=== PATIENT | male | born 1975 | race Caucasian/White ===

== ENCOUNTER 2022-04-24 08:40 | Outpatient (CLI) | payer BC, SELFPAY ==
--- NOTE | 2022-04-24 10:16 | W.ANESCHARGE ---
Anesthesia Charges Start Date/Time Anesthesia Start Date: 04/24/22 Anesthesia Start Time: 09:42 Stop Date/Time Anesthesia Stop Date: 04/24/22 Anesthesia Stop Time: 10:13 Summary Emergency: No
--- NOTE | 2022-04-24 10:51 | W.ANESCHARGE ---
Anesthesia Charges Start Date/Time Anesthesia Start Date: 04/24/22 Anesthesia Start Time: 09:42 Stop Date/Time Anesthesia Stop Date: 04/24/22 Anesthesia Stop Time: 10:13 Summary Emergency: No
== END 2022-04-24 08:41 | disposition home or self-care (01) ==
PROVIDERS: PCP Physician Assistant Medical; Visit Provider Surgery
DX: Z12.11 Encounter for screening for malignant neoplasm of colon (principal); Z80.0 Family history of malignant neoplasm of digestive organs
CPT/HCPCS: 45378; 811; 812; J2704

== ENCOUNTER 2022-09-18 13:29 | Outpatient (RCR) | payer MEDICAID, SELFPAY ==
--- NOTE | 2022-09-18 15:56 | PT.OPE ---
PT [place] [place] [facility] Eval PT [facility] Outpatient Eval Start: 09/18/22 10:11 Freq: Status: Active Protocol: Document 09/18/22 15:54 CJT (Rec: 09/18/22 15:55 CJT [id number]) E-signed By Russel Chatman PT Physical Therapy Outpatient Evaluation Insurance Information Recert Due Date 11/13/22 Insurance Name [employer] Medical Diagnosis M17.11 - unilateral primary OA of R knee Treating Diagnosis M25.561 - R knee pain M25.661 - R knee stiffness Referring MD Ramirez, Alberto OCONNOR Subjective Subjective Pt presents with R knee pain ongoing for several years. Pt has history of ACL tear and repair x 2 in 1994 and 1999 he thinks. Current knee pain has been ongoing for about 5 years now and has been progressively getting worse. Pts knee pain is made worse with walking long distances and stairs (up causes more pain, down causes increased instability). Walking up hills also cause stabbing pain that causes his knee to buckle. Pt thinks he is able to walk about 100 yards before he needs to stop to rest due to his pain. Pain occasionally keeps him from sleeping at night. Is taking IBP for pain relief. 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 Pain Comments High: 6/10 Average: 3/10 Low: 0/10 Date of Last Physician Visit 09/04/22 Current Work Status Unemployed Precautions Therapy Limitations/Systems Review Not Limited Objective Other/Pertinent Objective R Hip ROM Flexion - 120 Abduction - 30 IR/ER - 30/25 Extension - 5 L Hip ROM Flexion - 120 Abduction - 35 IR/ER - 30/25 Extension - 5 R knee ROM - 0-4-127 L knee ROM - 5-0-130 R ankle PF/DF(kf)/DF(ke) - 45/ 0/0 L ankle PF/DF(kf)/DF(ke) - 45/ 0/0 R Hip Strength Flexion - 5/5 MMT Abduction - 5/5 MMT Adduction - 5/5 MMT IR - 5/5 MMT ER - 3/5 MMT *limited by pain in medial knee Extension - 4+/5 MMT L Hip Strength Flexion - 5/5 MMT Abduction - 5/5 MMT Adduction - 5/5 MMT IR - 5/5 MMT ER - 5/5 MMT Extension - 5/5 MMT R knee Extension - 5/5 MMT R Knee Flexion - 5/5 MMT L knee Extension - 5/5 MMT L knee Flexion - 5/5 MMT R ankle DF - 5/5 MMT L ankle DF - 5/5 MMT Gait: antalgic on R Assessment Assessment/Impression Pt is a 47 year old male who presents with complaints of R knee pain ongoing and increasing over the past 5 years. Pts pain is achy, sharp , intermittent, and relieves with rest. Imaging shows significant joint space narrowing in medial compartment of R knee. Testing reveals knee AROM of 0-4-127 today. Pt notes that he has not had full knee extension on R for many years now. Pt does have history of ACL repair x 2 in 1996 and 2000, he believes. Testing reveals well -preserved strength and ROM in B LEs although pt does have sharp pain in knee with step- ups today and sit-stand transfers. The nature of the pts condition was explained and all questions were answered to the pts satisfaction. Skilled PT services are medically necessary to address deficits and return patient to highest level of function. Recommend physical therapy sessions 1/ week for 8 weeks. Pt agrees with this plan. Printout of HEP was given for I completion and pt gives verbal understanding of each exercise . Primary Functional Limitations Walking, stairs Plan of Care Rehabilitation Potential Fair Physical Therapy Goals STG - To be completed in 2-3 weeks: 1. Pt will report consistent use of ice as well as elevation of R LE while resting to reduce inflammation and swelling. 3. Pt to report reduction in knee pain with ambulation by factor of 2 so that he may continue to go on walks with his for exercise. LTG - To be completed in 8-12 weeks: 1. Pt to be I with HEP so that they may I manage progression of symptoms. 2. Pt will perform 10+ squats with good control over medial/ lateral deviation of knees to show improved functional strength to assist with transfers. 3. Pt will demo ability to ascend/descend flight of stairs with no change in pain so that he may negotiate steps at home without flaring knee symptoms. Treatment Plan/Direct Interventions Electrical Stimulation,Ice/ Cold/Vasopneumatic,Joint Mobilization,Manual Therapy, Neuromuscular Re-ed,Self-Care/ Home Management,Therapeutic Activities,Therapeutic Exercises,Ultrasound Frequency/Duration 1/week for 8 weeks Patient Will Be Discharged From Therapy Completion of LTG(s),Skills Plateau,Independent w/HEP, Independently Progressing Evaluation Billing Untimed Code Treatment Minutes 45 PT Eval No Charge No Complexity Low Certification Information Initial Certification Date 09/18/22 Ending Certification Date 11/13/22 Provider Signature Shows Agreement With POC & Medical Necessity Physician Signature & Date Requested Please Sign/Date Here Physician Comment/Change : Physician NPI Number #
== END 2022-11-15 14:28 | disposition home or self-care (01) ==
PROVIDERS: PCP Physician Assistant Medical; Visit Provider Orthopaedic Surgery
DX: M25.561 Pain in right knee (principal); M25.661 Stiffness of right knee, not elsewhere classified; M17.11 Unilateral primary osteoarthritis, right knee; Z51.89 Encounter for other specified aftercare
CPT/HCPCS: 97110; 97161

== ENCOUNTER 2024-02-13 15:58 | Outpatient (CLI) | payer BC, SELFPAY | END 2024-02-13 15:59 | disposition home or self-care (01) | PROVIDERS: PCP Physician Assistant Medical; Visit Provider Physician Assistant Medical | DX: M25.50 Pain in unspecified joint (principal); R41.89 Other symptoms and signs involving cognitive functions and awareness; R53.83 Other fatigue; R10.9 Unspecified abdominal pain | CPT/HCPCS: 80053; 80201; 82607; 82746; 83690; 84425; 84443; 86140; 86618; 87468; 87469; 87484; 87798 ==

== ENCOUNTER 2024-04-07 15:04 | Outpatient (CLI) | payer BC, SELFPAY | END 2024-04-07 15:05 | disposition home or self-care (01) | LOC: LKVREF 15:06 | PROVIDERS: PCP Physician Assistant Medical; Visit Provider Physician Assistant Medical | DX: F90.9 Attention-deficit hyperactivity disorder, unspecified type (principal); Z02.83 Encounter for blood-alcohol and blood-drug test | CPT/HCPCS: 80306 ==

== ENCOUNTER 2024-09-08 08:41 | Outpatient (CLI) | payer BC, SELFPAY | END 2024-09-08 08:42 | disposition home or self-care (01) | PROVIDERS: PCP Physician Assistant Medical; Visit Provider Physician Assistant Medical | DX: Z12.5 Encounter for screening for malignant neoplasm of prostate (principal) | CPT/HCPCS: 87081; G0103 ==

== ENCOUNTER 2024-09-08 09:46 | Outpatient (RCR) | payer BC, SELFPAY | END 2024-11-05 14:54 | disposition home or self-care (01) | PROVIDERS: PCP Physician Assistant Medical; Visit Provider Orthopaedic Surgery | DX: M17.11 Unilateral primary osteoarthritis, right knee (principal); Z96.651 Presence of right artificial knee joint; Z51.89 Encounter for other specified aftercare | CPT/HCPCS: 97161 ==

== ENCOUNTER 2024-09-09 15:55 | Outpatient (CLI) | payer BC, SELFPAY | END 2024-09-09 15:56 | disposition home or self-care (01) | LOC: NFLDREF 15:55 | PROVIDERS: PCP Physician Assistant Medical; Visit Provider Physician Assistant Medical | DX: Z86.14 Personal history of Methicillin resistant Staphylococcus aureus infection (principal) | CPT/HCPCS: 87081 ==

== ENCOUNTER 2024-09-11 06:06 | Day surgery (SDC) | payer BC, SELFPAY ==
[2024-09-11] VITALS (18 sets, daily range): BP systolic 97–129; BP diastolic 58–94; PULSE 64–97; RESP 16–22; TEMP 36–36.9; O2SAT 93–99; BMI 40.8
[2024-09-11] MEDS: ACETAMINOPHEN 500 MG TABLET 1000 MG PO ×2 (06:51→13:08)
[2024-09-11] MEDS: LACTATED RINGERS 1000 ML 1,000 ML 100 ML IV (06:52)
[2024-09-11] MEDS: CELECOXIB 200 MG CAPSULE PO (06:52)
[2024-09-11] MEDS: SODIUM CHLORIDE 0.9 % (FLUSH) 10 ML SYRINGE IVF (06:52)
[2024-09-11] MEDS: OXYCODONE (CR) 10 MG TAB.ER.12H PO (06:52)
[2024-09-11] MEDS: fentaNYL 100 MCG/2 ML inj IVP (07:25)
[2024-09-11] MEDS: MIDAZOLAM HCL 1 MG/ML inj IVP (07:25)
--- NOTE | 2024-09-11 07:31 | SUR.PREOP ---
TIME?OUT:?0725 PT/RN/MDA?VERIFICATION?OF?SURGICAL?SITE Right Knee,?PROCEDURE Nerve Block,?AND?CONSENT OBTAINED?PRIOR?TO?INVASIVE?PROCEDURE.
[2024-09-11] MEDS: TRANEXAMIC ACID 100 MG/ML INJ 1000 MG IV (07:50)
[2024-09-11] MEDS: CEFAZOLIN 2 GM INJ IVP (07:55)
--- NOTE | 2024-09-11 10:50 | CRLHL7_ITS ---
For Patients: As a result of the Cures Act, medical imaging exams and procedure reports are released immediately into your electronic medical record. You may view this report before your referring provider. If you have questions, please contact your health care provider. Indication: post op TKA Technique: Two views right knee Findings/Impression: Hardware from a right total knee arthroplasty is in satisfactory position. Bone alignment is normal. No sign of acute fracture. Postop changes are within normal limits. Dictated by Stewart Castellano MD @ 09/11/2024 1:12:29 PM (Electronically Signed)
--- NOTE | 2024-09-11 11:40 | W.ANESCHARGE ---
Anesthesia Charges Start Date/Time Anesthesia Start Date: 09/11/24 Anesthesia Start Time: 07:32 Stop Date/Time Anesthesia Stop Date: 09/11/24 Anesthesia Stop Time: 11:59
--- NOTE | 2024-09-11 11:41 | P.NB_ITS ---
Nerve Block Nerve Block Time Seen by Provider: 07:25 Date Seen: 09/11/24 Type of block requested by surgeon for post-operative analgesia: adductor canal Side: right Time out performed: Yes Verification of patient name: Yes Verification of date of : Yes Site marking: site marked Name of person performing procedure: Harvinder Continuous monitoring Was continuous monitoring of O2 sat, B/P, cardiac sonographer, recorded every 15 minutes?: Yes Procedure Checklist: sterile prep, needles and gloves Ultrasound guided. Images saved: Yes Medications given in 5ml increments after negative aspiration: Marcaine %: 0.25 mL: 15 Needle gauge: 20 Precedex (mcg): 25 Patient tolerated procedure well: Yes Block Charges Block Charge (with Pro Fee): Femoral Nerve Use of Ultrasound Machine for Block: Yes- US Guidance/pain block
--- NOTE | 2024-09-11 11:41 | P.NB_ITS ---
Nerve Block Nerve Block Time Seen by Provider: 07:25 Date Seen: 09/11/24 Type of block requested by surgeon for post-operative analgesia: geniculars Side: right Time out performed: Yes Verification of patient name: Yes Verification of date of : Yes Site marking: site marked Name of person performing procedure: Harvinder Continuous monitoring Was continuous monitoring of O2 sat, B/P, documentation coordinator, recorded every 15 minutes?: Yes Procedure Checklist: sterile prep, needles and gloves Ultrasound guided. Images saved: Yes Medications given in 5ml increments after negative aspiration: Marcaine %: 0.25 mL: 9 Needle gauge: 25 Patient tolerated procedure well: Yes Block Charges Block Charge (with Pro Fee): Genicular Nerve Block
--- NOTE | 2024-09-11 12:02 | W.ANESCHARGE ---
Anesthesia Charges Start Date/Time Anesthesia Start Date: 09/11/24 Anesthesia Start Time: 07:32 Stop Date/Time Anesthesia Stop Date: 09/11/24 Anesthesia Stop Time: 11:59
[2024-09-11] MEDS: fentaNYL 100 MCG/2 ML inj 50 MCG IVP ×2 (12:04→12:25)
--- NOTE | 2024-09-11 12:50 | PM.ORPRC ---
Procedure Note Date of procedure: 09/11/24 Procedure: PREOPERATIVE DIAGNOSIS: Right knee osteoarthritis, retained hardware POSTOPERATIVE DIAGNOSIS: Right knee osteoarthritis, retained hardware NAME OF OPERATION: Right total knee arthroplasty, hardware removal deep SURGEON: Alberto Ramirez MD CAREER GUIDANCE TECHNICIAN: Praveen Simon PA-C ANESTHESIA: Spinal ESTIMATED BLOOD LOSS: 300 mL COMPLICATIONS: None SPECIMENS: None DRAINS: None PREOPERATIVE ANTIBIOTICS: Ancef 3 grams, antibiotic impregnated cement IMPLANTS: 1. J&J Attune revision CRS # 9 posterior stabilized femur, 14 mm x 50 mm cemented stem 2. # 9 revision CRS fixed-bearing tibia, 14 x 50 mm cemented stem 3. # 9 posterior stabilized, 5 mm fixed-bearing polyethylene 4. 41 patella INDICATIONS: The patient is a 49-year-old with a longstanding history of severe, unrelenting right knee pain secondary to end-stage (grade IV) right knee osteoarthritis after failed patellar tendon autograft ACL reconstruction x2, with retained hardware. Despite appropriate nonoperative management, including activity modification, anti-inflammatories, [id number] pain medication, bracing, physical therapy, and injections they continue to have pain and disability. Operative intervention was offered. The risks, benefits and expected outcomes were discussed in detail. These included but were not limited to: Infection, bleeding, injury to blood vessel or nerve, venous thromboembolism. All questions were answered to their satisfaction. Use of an assistant chief engineer was necessary throughout the case for patient positioning and safety, soft tissue retraction, and closure. A modifier 22 should be added to this case. The patient's weight of 140 kg, BMI of 41, and previous surgery x2 with a marked amount of scarring made the dissection quite difficult. To reduce the risk of aseptic loosening, stemmed components were used. These factors added time and cost to complete the case. PROCEDURE: Spinal anesthesia was administered. The patient was placed supine on the operating table. The assistant chief engineer made sure the patient was positioned appropriately. The lower extremity was prepped and draped in the usual sterile fashion. The limb was exsanguinated with the Moises bandage. The pneumatic tourniquet was inflated to 300 mmHg. A standard anterior incision was made with the knee in flexion. Subcutaneous dissection was sharply taken through fascial layer #1. Full-thickness medial and lateral flaps were elevated. The assistant chief engineer retracted the soft tissues and protected them throughout the case. A standard subvastus approach was made. The patella was subluxed. The infrapatellar fat pad was debrided. The menisci and cruciate ligaments were sharply d?brided. Marginal osteophytes were d?brided with the rongeur. We exposed the sharath over the anteromedial face of the tibia at the origin of the tibial tunnel. We exposed the sharath with the rongeur, curette and osteotome. We removed the 1st staple with the vice veterans service representative. Part of the staple broke off in the bone. This allowed us to expose the Juan Miguel staple which was removed intact with the extractor. The other staple was removed with a vice veterans service representative and broke as well. We were able to get remaining sheree in the tibia removed x2 with the vice veterans service representative. The titanium interference screw was removed intact. This nearly took an hour of tourniquet time. The drill was used to penetrate the femoral canal. The canal was aspirated and irrigated with pulse lavage. The intramedullary femoral guide was placed for a 5-degree valgus cut, removing 10 mm off the distal femur. The saw was used to make the cut. It did not appear that we removed enough of the distal femur. Therefore, we turned our attention to the proximal tibia. The extramedullary tibial guide was placed for a neutral varus/valgus cut with 5 degrees of posterior slope, removing 2 mm based off the medial tibial surface. The assistant chief engineer protected the collateral ligaments and the neurovascular bundle. The saw was used to make the cut. The dog bone was placed in full extension, showing a tight extension gap. Therefore, we advanced the distal femoral cutting jig 2 more mm proximally and recut the femur. This allowed us to get the knee into full extension with the 5 mm dog bone. Whitesides line and the trans epicondylar axis were marked. The femoral sizing guide was pinned onto the distal femur. Three degrees of external rotation nicely parallels the transepicondylar axis. Pins were placed for posterior referencing. The four-in-one cutting guide was pinned onto the distal femur. The anterior, posterior, and chamfer cuts were made. The assistant chief engineer protected the collateral ligaments. The revision trial was placed. The box cuts were made. The drill was used x2. The stemmed, boxed trial was placed and was an excellent fit. We attempted to place trial components. However the knee was tight in both flexion and extension. Therefore, we advance the tibial cutting guide 2 more mm distally and recut the proximal tibia. Again, trial components were placed and again the knee was tight in both flexion and extension. Therefore, we advanced the tibial cutting jig another 2 mm more distally and recut the proximal tibia. Now the trial components components were placed, and the knee was nicely balanced in both flexion and extension. The trial components were removed. The tray was placed in appropriate rotation, parallel to our tibial cutting pins. It was pinned by the assistant chief engineer and the drill x2 was used. The stemmed tibial trial was placed. The punch was used. The tray was removed. The punch was used again. Attention was then turned to the patella. [place] patellar thickness was 24.5 mm. The RE2ster claw resection guide was used with the 9.5 mm mame. The saw was used to make the cut. Drill holes were made by the assistant chief engineer. The trial was placed and was an excellent fit. At this point, we were at 129 minutes of tourniquet time. Therefore, we released the tourniquet and cauterized obvious bleeders. The tourniquet was kept down for 20 minutes. After that time we exsanguinated the limb and reinflated the tourniquet. Cancellous surfaces were irrigated with pulse lavage and thoroughly dried by the assistant chief engineer. We cemented the tibial component, then the femoral component. We impacted the 5 mm polyethylene onto the tibial tray. The knee was brought into full extension. We then cemented the patellar component. Excessive cement was removed. The cement was allowed to harden. The knee was taken through a range of motion and was found to be nicely balanced in both flexion and extension. The patella tracks centrally. At this point, the tourniquet was released and kept down for the rest of the case. The assistant chief engineer did a three minute dilute Betadine solution soak. The assistant chief engineer irrigated the wound with 3 liters of normal saline via pulse lavage. The assistant chief engineer reapproximated the extensor mechanism with #1 Vicryl in an interrupted [id number] fashion. The assistant chief engineer then ran the extensor mechanism with a #1 PDO Stratafix. The assistant chief engineer closed the subcutaneous tissues with a 3-0 Stratafix and the skin with a running 3-0 Stratafix in a subcuticular fashion. Glue was used to seal the skin. The assistant chief engineer placed a dry dressing. Sponge and needle counts were correct x2. The patient tolerated the procedure well. There were no apparent complications. They were carefully transferred to the hospital bed and taken to the postanesthesia care unit in satisfactory condition. PLAN: The patient will be mobilized with physical therapy. Aspirin will be used for DVT prophylaxis. They will be discharged to home once medically appropriate.
[2024-09-11] MEDS: OXYCODONE 5 MG TABLET PO (13:08)
[2024-09-11] MEDS: hydrOXYzine pamoate 25 MG CAPSULE PO (13:09)
--- NOTE | 2024-09-11 14:54 | SUR.PHASEII ---
Patient returned from PT instruction. Patient and verbalized readiness to be discharged and understanding of discharge instructions.
--- NOTE | 2024-09-12 13:03 | PM.ANPOST ---
Post Anesthesia Note Post Anesthesia Note Patient seen: Inpatient Respiratory Status: adequate Cardiovascular Status: adequate Mental Status: baseline Pain: adequate Temp: baseline Anesthetic awareness: N/A Complications: none Follow care: none
== END 2024-09-11 14:55 | disposition home or self-care (01) ==
LOC: OR 06:08
PROVIDERS: PCP Physician Assistant Medical; Visit Provider Orthopaedic Surgery
PROC: (CPT 27447; principal; 2024-09-11 07:30)
DX: M17.11 Unilateral primary osteoarthritis, right knee (principal); T84.490A Other mechanical complication of muscle and tendon graft, initial encounter; T84.196A Other mechanical complication of internal fixation device of bone of right lower leg, initial encounter; G89.18 Other acute postprocedural pain; R63.5 Abnormal weight gain; Z68.41 Body mass index [BMI] 40.0-44.9, adult; G47.33 Obstructive sleep apnea (adult) (pediatric); I10 Essential (primary) hypertension
CPT/HCPCS: 27447; 20680; 01402; 36415; 64447; 64454; 73560; 76942; 83036; 85027; 97110; 97116; 97161; G0103; A9270; C1776; J0665; J0690; J1100; J2250; J2405; J2704; J3010; J7120

== ENCOUNTER 2024-11-19 20:27 | Emergency (ER) | payer BC, SELFPAY ==
--- OUTSIDE RECORDS SUMMARY | 2024-11-19 20:28 | XMS_ITS | Clinical Summary ---
Author Organization [facility] Address [address] [place] [id number] Care Team Providers Care Corporate Licensed Broker Name Role Phone [place], [facility] Primary [facility] Provide r Allergies No known active allergies Medications ARIPiprazole (ABILIFY) 5 MG tablet Take 5 mg by mouth daily. Active DULoxetine (CYMBALTA) 60 MG capsule Take 2 capsules by mouth daily. 1 Active TRAZodone (DESYREL) 100 MG tabletIndication s:Major depressive disorder, single episode, in partial or unspecified remission Take 1-2 tablets by mouth nightly as needed for sleep. 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 Gender Identity Not on file Sexual Orientation Not on file Last Filed Vital Signs Vital Sign Reading Time Taken Comments Blood Pressure 146/81 06/01/2011 7:54 AM CDT Pulse 93 06/01/2011 7:54 AM CDT Temperature 36.6 C (97.9 F) 06/01/2011 7:52 AM CDT Respiratory Rate 16 06/01/2011 7:52 AM CDT Oxygen Saturation 97% 05/30/2011 3:17 AM CDT Inhaled Oxygen Concentration - - Weight 138.8 kg (306 lb) 05/30/2011 4:46 AM CDT Height 188 cm (6' 2) 05/30/2011 4:46 AM CDT Body Mass Index 39.29 05/30/2011 4:46 AM CDT Plan of Treatment Not on file Insurance [id number] [id number] [employer] CHOICE [facility] Advance Directives For more information, please contact: [phone] * Full Code (Latest Code Status on File) Date Activated Date Inactivated Comments 05/30/2011 3:35 AM 06/01/2011 5:02 PM Care Teams Corporate Licensed Broker Relationship Specialty Start Date End Date Loreto, Melqui[place] [address] [place] [address] PCP - General 12/19/19
--- OUTSIDE RECORDS SUMMARY | 2024-11-19 20:28 | XMS_ITS | Clinical Summary ---
Author Organization [facility] Address [address] [place] [address] Care Team Providers Care Tank House Operator Name Role Phone Arielle Miller Primary Care Provider Unavailabl e Allergies No known active allergies Medications lisinopril-hydr ochlorothiazide (10-12.5 mg) tablet (PRINZIDE; ZESTORETIC) Take 1 tablet by mouth once daily. 09/22/2020 Active buPROPion (WELLBUTRIN XL) 150 mg Extended-Releas e tablet Take 150 mg by mouth once daily. 09/22/2020 Active hydrOXYzine HCL (ATARAX) 25 mg tablet Take 25 mg by mouth 3 times daily if needed for Anxiety (and insomnia). Take 1-2 capsule three times a day as needed for anxiety or insomnia Active Active Problems Problem Noted Date Diagnosed Date Pulmonary nodule 08/23/2016 Overview (08/25/2016): 08/23/2016 CT abdomen/pelvis - LUNG BASES: Fairly marked respiratory motion artifact. 1.6 x 1.1 cm nodular opacity right lower lobe anterobasal segment,question focal pneumonitis versus true nodule. Recommend short-term, for example 2-[address] follow-up to evaluate for resolution. - pt and PCP informed - Guidelines for follow-up of benign appearing pulmonary nodules, based on Fleischner Society recommendations, Radiology 2005; 237:395-400. Nodule size (mm), low risk patient: 4 or less, no followup needed >4-6, CT at 12 mo, if unchanged then no further followup >6-8, CT at 6 and 24 mo, if unchanged then no further followup >8, CT at 3, 9, and 24 mo, or PET or biopsy Nodule size (mm), high risk patient: 4 or less, CT at 12 mo, if unchanged then no further followup >4-6, CT at 6 and 24 mo, if unchanged then no further followup >6-8, CT at 3, 9, and 24 mo, or PET or biopsy >8, CT at 3, 9, and 24 mo, or PET or biopsy Size is average of length and width. Nonsolid (ground-glass) or partial solid nodules require longer followup. ADHD (attention deficit hyperactivity disorder) 11/15/2012 Unspecified sleep apnea 04/13/2010 Major depressive disorder, r ecurrent episode, severe, without mention of psychotic behavior 04/13/2010 Insomnia, unspecified 04/12/2010 Tobacco abuse 04/12/2010 Cataract, post subcapsular polar senile, right Immunizations Name Administration Dates Next Due Td (Age >=7 Years) 08/31/2005 Tdap 04/10/2019,07/13/2015 Family History Medical History Relation Name Comments Good Health Brother Cancer Father thymus gland Cancer-colon Mother 76 Diabetes Mother Good Health Sister Relation Name Status Comments Brother Father Mother Sister Social History Tobacco Use Types Packs/Day Years Used Date Smoking Tobacco: Every Day Cigarettes Smokeless Tobacco: Never Tobacco Cessation:Counseling Given: Yes Alcohol Use Standard Drinks/Week Comments Yes 0 (1 standard drink = 0.6 oz pur e alcohol) occasional Social Connections Answer Date Recorded Frequency of Communication with Friends and Fami ly Not on file 09/27/2021 Financial Resource Strain Answer Date R ecorded Difficulty of Paying Living Expenses Not on file 09/27/2021 Difficulty of Paying Living Expenses Not on file 09/27/2021 Sex and Gender Information Value Date Recorded Sex Assigned at Not on file Legal Sex Male 5:24 AM LIBRARY CONSULTANT Gender Identity Not on file Sexual Orientation Not on file Obstetrics History Last Filed Vital Signs Vital Sign Reading Time Taken Comments Blood Pressure 135/88 10/28/2020 8:22 AM LIBRARY CONSULTANT Pulse 91 10/28/2020 8:22 AM LIBRARY CONSULTANT Temperature 35.9 C (96.6 F) 10/28/2020 6:51 AM LIBRARY CONSULTANT Respiratory Rate 20 10/28/2020 8:22 AM LIBRARY CONSULTANT Oxygen Saturation 97% 10/28/2020 8:22 AM LIBRARY CONSULTANT Inhaled Oxygen Concentration - - Weight 131.1 kg (289 lb) 10/27/2020 3:39 PM LIBRARY CONSULTANT Height 186.1 cm (6' 1.25) 10/27/2020 3:39 PM CS T Body Mass Index 37.87 10/27/2020 3:39 PM LIBRARY CONSULTANT Plan of Treatment Health Maintenance Due Date Last Done Comments HIV for age 15-65 1989 Hepatitis C screening for age 18-79 02/23/1992 Depression screening for age 12+ 03/20/2017 03/20/2016 Colonoscopy through age 75 2019 Lipids for age 45-75 2019 BMI (ht and wt on same day) for age 18+ 10/25/2021 10/25/2020, 08/23/2016, 03/22/2016, Additional history exists Pneumococcal series for age 50+ (1 of 1 - PCV) 02/23/2024 Zoster (shingles) series for age 50+ (1 of 2) 02/23/2024 COVID-19 vaccine series ( - season) 2024 Influenza for age 50-64 06/01/2024 Tetanus booster 04/10/2029 04/10/2019, 07/01, 08/31/2005 Tdap Completed 04/10/2019, 07/13/2015 Pneumococcal series for age 6-49 Aged Out No longer eligible based on patient's age to complete this topic Medical Devices Implanted Type Area Boring Machine Operator Double End Device Identifier Shelf Expiration Date Model / Serial / Lot Iol Casey +20 [employer]ec[employer] [id number] - [id number] Implanted:Qty: 1 on 10/28/2020 by Yovanny Garibay MD at [facility] Opthalmology Implants Right: Eye [employer] 07/25/2024 ZCB00 20.0 / [id number] / Insurance [employer]HODELL CROSS OF NON-AR-ITS [place] [id number] * Guarantor: [employer] Account Type Relation to Patient Date of Phone Billing Address [facility] [employer] 10/01/2001 [id number] [facility] [address] [place] [id number] Advance Directives * Full Code (Latest Code Status on File) Date Activated Date Inactivated Comments 10/28/2020 6:35 AM 10/28/2020 10:39 AM Question Answer Comments Code Status Discussion: Not Discussed Care Teams Tank House Operator Relationship Specialty Start Date End Date Arielle Miller PCP - General Internal Medicine 12/19/19
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
--- NOTE | 2024-11-19 20:32 | CRLHL7_ITS ---
For Patients: As a result of the Century Cures Act, medical imaging exams and procedure reports are released immediately into your electronic medical record. You may view this report before your referring provider. If you have questions, please contact your health care provider. INDICATION: Leg pain and swelling. TECHNIQUE: Ultrasound venous duplex lower right extremity. Compression venous exam was performed using hernandez-scale, color Doppler, and spectral Doppler analysis. COMPARISON: None. FINDINGS: Deep veins: Sonographic imaging demonstrates the right common femoral, deep femoral, superficial femoral, popliteal, posterior tibial and the contralateral common femoral veins to be fully compressible with normal color Doppler blood flow. Superficial veins: Greater saphenous vein is fully compressible. No popliteal cyst. IMPRESSION: No right lower extremity DVT. Dictated by Yaniv Rutherford MD @ 11/19/2024 9:52:40 PM (Electronically Signed)
[2024-11-19 20:35] VITALS: BP 135/81; PULSE 89; RESP 20; TEMP 36.7; O2SAT 98; BMI 39.6
--- NOTE | 2024-11-19 21:47 | ED_ITS ---
HPI - General Adult General Chief complaint: Lower Extremity Swelling Stated complaint: blood clot Time Seen by Provider: 11/19/24 20:45 History of Present Illness HPI narrative: CC: Right Lower Leg Swelling/ Pain pt. was at PT today for rehab . pt. had right knee replacement 10 weeks ago. d?dimer elevated at urgent care and was sent here to have ultrasound to r /o DVT. denies shortness of breath, chest pain, fevers. 49-year-old man with concern of right lower extremity swelling now 10 weeks postop knee. Concerns were noted during physical therapy today. Was seen in urgent care with elevated D-dimer and normal white count. Directed to the emergency department to be clear to of potential DVT. Has been having increased pain in the lateral knee. Did slip on the ice about 10 days ago. May be tweaked it a little bit. This might be contributing to increased discomfort he says. No new activity other than usual PT. 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 Related Data Previous Rx's ?Medication ?Instructions ?Recorded quetiapine 25 mg tablet 25 mg PO QPM for insomnia #90 tabs 04/07/24 topiramate 25 mg tablet (Topamax) 25 mg PO BID #180 tabs 07/28/24 acetaminophen 500 mg capsule 500 - 1,000 mg (1 - 2 x 500 mg) PO 09/19/24 Q6H PRN pain #100 caps aripiprazole 5 mg tablet 2.5 mg (1/2 x 5 mg) PO QDAY #45 09/22/24 tabs losartan 100 1 tab PO DAILY #90 tabs 10/08/24 mg-hydrochlorothiazide 25 mg tablet lisdexamfetamine 40 mg capsule 40 mg PO QDAY #30 caps 10/27/24 (Vyvanse) Allergies Allergy/AdvReac Type Severity Reaction Status Date / Time No Known Allergies Allergy Unknown Verified 11/19/24 20:38 Review of Systems Status of ROS: Reports: 6 or more systems reviewed and unremarkable except as noted in History and below PFSH PFS Medical History Hx MRSA infection ?Z86.14 - Personal history of Methicillin resistant Staphylococcus aureus infection (ICD-10) Babesiosis (~12/2023) ?B60.00 - Babesiosis, unspecified (ICD-10) Hx of suicide attempt ?Z91.51 - Personal history of suicidal behavior (ICD-10) Infection due to severe acute respiratory syndrome coronavirus 2 (SARS-CoV-2) (2020) ?U07.1 - COVID-19 (ICD-10) Cellulitis ?L03.90 - Cellulitis, unspecified (ICD-10) Abscess of external ear ?H60.00 - Abscess of external ear, unspecified ear (ICD-10) History of solitary pulmonary nodule ?Z87.898 - Personal history of other specified conditions (ICD-10) History of panic attacks ?Z86.59 - Personal history of other mental and behavioral disorders (ICD-10) Surgical History Status post right knee replacement (09/11/24) ?Z96.651 - Presence of right artificial knee joint (ICD-10) H/O eye surgery ?Z98.890 - Other specified postprocedural states (ICD-10) History of ankle surgery (10/12/04) ?Z98.890 - Other specified postprocedural states (ICD-10) History of repair of anterior cruciate ligament of right knee ?Z98.890 - Other specified postprocedural states (ICD-10) Family History Mother Colon cancer High blood pressure Father Depression Thymus cancer Daughter Depression Brother High blood pressure Prostate cancer Social History Narrative: . , [place]. ( 2 sons -21 yo, 17 yo), ( Daughter 23 yo.) Tobacco use; regular smoker (started since age 13yo) Alcohol: Beer; under 6 beers per day. usually 2-3 beers per day. Recreational drugs: some marijuana- smoke- one nightly. Smoking Status: Current every day smoker What tobacco products do you use: cigarettes Second hand tobacco smoke exposure: Yes How often do you have a drink containing alcohol: 4 or more times a week How many standard drinks containing alcohol do you have on a typical day: 3 or 4 AUDIT-C Alcohol total score: 5 Non-prescribed substance use: marijuana (any form) Caffeine: Yes Exam Narrative: Exam Narrative: Generally full right knee mildly erythematous without cellulitic change. Well- healing anterior surgical incision/scar. Mild pretibial edema right though similar to the left. Irregular and faint erythema in the right leg versus the left. No significant induration or calor. Breathing easily. No pain to palpation of the calves. Negative Homans. Flexes the knee with minor discomfort Const: Vital Signs, click to edit/add: Vital Signs - 24 hr 11/19/24 20:35 11/19/24 22:22 11/19/24 22:23 Temperature 98.1 F 98.1 F 98.1 F Pulse Rate [Right Pulse Oximeter] 89 87 87 Respiratory Rate 20 20 20 Blood Pressure [Ri ght Upper Arm] 135/81 125/74 125/74 Pulse Oximetry 98 98 Oxygen Delivery Me thod Room Air Room Air Documenting provider has reviewed patient's vital signs: yes Course Vital Signs Vital signs: Initial Vital Signs Temperature 98.1 F 11/19/24 20:35 Temperature Source Temporal Artery Scan 11/19/24 20:35 Pulse Rate 89 11/19/24 20:35 Respiratory Rate 20 11/19/24 20:35 Blood Pressure 135/81 11/19/24 20:35 Blood Pressure Mean 99 11/19/24 20:35 Blood Pressure Position Sitting 11/19/24 20:35 Pulse Oximetry 98 11/19/24 20:35 Oxygen Delivery Method Room Air 11/19/24 20:35 Vital Signs Temperature 98.1 F 11/19/24 20:35 Pulse Rate 89 11/19/24 20:35 Respiratory Rate 20 11/19/24 20:35 Blood Pressure 135/81 11/19/24 20:35 Pulse Oximetry 98 11/19/24 20:35 Oxygen Delivery Method Room Air 11/19/24 20:35 Temperature 98.1 F 11/19/24 22:23 Pulse Rate 87 11/19/24 22:23 Respiratory Rate 20 11/19/24 22:23 Blood Pressure 125/74 11/19/24 22:23 Pulse Oximetry 98 11/19/24 22:22 Oxygen Delivery Method Room Air 11/19/24 22:22 Medical Decision Making MDM Narrative Medical decision making narrative: Certainly is a setup for DVT. On arrival here ultrasound had already been ordered. Could be some mild cellulitis though I do not think so and also with normal white count, no major calor or induration, no particular tenderness over the skin. No fever. Does not appear to have a joint infection given ability and willingness to move his knee. Koehler's cyst rupture? Discussed findings with first front ventilator that being negative for DVT in the right lower extremity. Confirm negative with radiology over-read as well. No other significant findings. Discussed pain management needs. Poor sleep last night due to throbbing pain. Follow-up otherwise with orthopedics. See patient discharge plan for further discussion Try to spend more time icing your knee as discussed. Radiology agrees that there is no clot here. Please follow-up with scheduled physical therapy. Will be prescribing some Percocet from [facility] as discussed. Can take up to 1000 mg of acetaminophen per dose which can be combined with ibuprofen or your Celebrex. Number that each tablet of Percocet contains 325 mg of acetaminophen Medical Records Medical records reviewed: Yes I reviewed the patient's medical records Lab Data Lab results reviewed: Yes I reviewed the patient's lab results Discharge Plan Discharge Clinical Impression: Postoperative pain of knee, Edema of lower extremity Patient Disposition: Home w/ Parent or Adult Condition: Stable Additional Instructions: Try to spend more time icing your knee as discussed. Radiology agrees that there is no clot here. Please follow-up with scheduled physical therapy. Will be prescribing some Percocet from [facility] as discussed. Can take up to 1000 mg of acetaminophen per dose which can be combined with ibuprofen or your Celebrex. Number that each tablet of Percocet contains 325 mg of acetaminophen Prescriptions: No Action quetiapine 25 mg tablet 25 mg PO QPM Qty: 90 2RF topiramate [Topamax] 25 mg tablet 25 mg PO BID Qty: 180 1RF Rx Instructions: One tablet twice daily for weight loss support acetaminophen 500 mg capsule 500 - 1,000 mg PO Q6H MDD 4000mg PRN (Reason: pain) Qty: 100 2RF aripiprazole 5 mg tablet 2.5 mg PO QDAY Qty: 45 0RF Rx Instructions: 1/2 tablet once a day for mood losartan-hydrochlorothiazide 100-25 mg tablet 1 tab PO DAILY Qty: 90 1RF lisdexamfetamine [Vyvanse] 40 mg capsule 40 mg PO QDAY Qty: 30 0RF Follow Up/Referrals: Jenn Garrison PA-C [Primary Care Provider] - Stand Alone Forms: [employer] Info Instructions
--- OUTSIDE RECORDS SUMMARY | 2024-11-19 22:04 | XMS_ITS | Encounter Summary ---
Author Organization [place] Address [address] [place] [address]. [place] [address] Care Team Providers Care Grocery Shopper Name Role Phone Clinic, [facility] Primary Care Provider + [facility], [facility] Primary Care Provide r Encounter Details Date Type Department Care Team ([facility] st Contact Info) Description 05/30/2011 Telephone [facility] Behavioral Health Intake [address] [place] [phone] Generic, Behavioral Intake, Social History Tobacco Use Types Packs/Day Years Used Date Smoking Tobacco: Every Day Alcohol Use Standard Drinks/Week Comments Yes 0 (1 standard drink = 0.6 oz pure alcohol) pt drinking daily for a long time' Sex and Gender Information Value Date Recorded Sex Assigned at Not on file 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 Out patient at [facility] but he did not want that location as it is too far from his home. A list of possible out patient programs within 10 miles of the patient were sent to the unit. propagation worker was notified. * Telephone Encounter - Rachael Aj - 05/30/2011 2:02 PM CDT 05-30-11 order for CD Consult [id number]. called to giuseppe yan message sent. fb * Telephone Encounter - Jenn Pierce - 05/30/2011 1:31 AM CDT 05/30/11 S: pt was bib sister and nephew to [facility] er. Pt is suicidal with a [...] on filedocumented in this encounter Care Teams Grocery Shopper Relationship Specialty Start Date End Date [facility], [facility] [address] [place] [address] PCP - General 05/30/11 12/18/19 [facility] [address] [place], [place] [id number] PCP - General 12/19/19 documented as of this encounter
--- OUTSIDE RECORDS SUMMARY | 2024-11-19 22:04 | XMS_ITS | Clinical Summary ---
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
--- OUTSIDE RECORDS SUMMARY | 2024-11-19 22:04 | XMS_ITS | Clinical Summary ---
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 Gender Identity Not on file Sexual Orientation Not on file Obstetrics History Last Filed Vital Signs Vital Sign Reading Time Taken Comments Blood Pressure 135/88 10/28/2020 8:22 AM COLD STORAGE SUPERVISOR Pulse 91 10/28/2020 8:22 AM COLD STORAGE SUPERVISOR Temperature 35.9 C (96.6 F) 10/28/2020 6:51 AM COLD STORAGE SUPERVISOR Respiratory Rate 20 10/28/2020 8:22 AM COLD STORAGE SUPERVISOR Oxygen Saturation 97% 10/28/2020 8:22 AM COLD STORAGE SUPERVISOR Inhaled Oxygen Concentration - - Weight 131.1 kg (289 lb) 10/27/2020 3:39 PM COLD STORAGE SUPERVISOR Height 186.1 cm (6' 1.25) 10/27/2020 3:39 PM CS T Body Mass Index 37.87 10/27/2020 3:39 PM COLD STORAGE SUPERVISOR Plan of Treatment Health Maintenance Due Date [...] this topic Medical Devices Implanted Type Area Student Recruiter Device Identifier Shelf Expiration Date Model / Serial / Lot Iol [place] +20 [employer] Zcb00 - [id number] Implanted:Qty: 1 on 10/28/2020 by Yovanny Garibay MD at [facility] Opthalmology Implants Right: Eye [employer] 07/25/2024 ZCB00 20.0 / [id number] / Insurance [place] [employer] NON-AZ-ITS [place] [id number] * Guarantor: [employer]ah[employer] Account Type Relation to Patient Date of Phone Billing Address [facility] [employer] [address] [id number] [facility] [address] [place] [address] Advance Directives * Full Code (Latest Code Status on File) Date Activated Date Inactivated Comments 10/28/2020 6:35 AM 10/28/2020 10:39 AM Question Answer Comments Code Status Discussion: Not Discussed Care Teams Bankruptcy Processor Relationship Specialty Start Date End Date Arielle Miller PCP - General Internal Medicine 12/19/19
[2024-11-19 22:22] VITALS: BP 125/74; PULSE 87; RESP 20; TEMP 36.7; O2SAT 98
[2024-11-19 22:23] VITALS: BP 125/74; PULSE 87; RESP 20; TEMP 36.7
== END 2024-11-19 22:23 | disposition home or self-care (01) ==
PROVIDERS: Emergency Provider Family Medicine; PCP Physician Assistant Medical
DX: R60.0 Localized edema (principal)
CPT/HCPCS: 93971; 99283; 99284

== ENCOUNTER 2025-06-07 20:31 | Emergency (ER) | payer BC, SELFPAY ==
--- OUTSIDE RECORDS SUMMARY | 2025-06-07 20:35 | XMS_ITS | Clinical Summary ---
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
--- OUTSIDE RECORDS SUMMARY | 2025-06-07 20:35 | XMS_ITS | Clinical Summary ---
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 Gender Identity Not on file Sexual Orientation Not on file Obstetrics History Last Filed Vital Signs Vital Sign Reading Time Taken Comments Blood Pressure 135/88 10/28/2020 8:22 AM COMPOUND MACHINE OPERATOR Pulse 91 10/28/2020 8:22 AM COMPOUND MACHINE OPERATOR Temperature 35.9 C (96.6 F) 10/28/2020 6:51 AM COMPOUND MACHINE OPERATOR Respiratory Rate 20 10/28/2020 8:22 AM COMPOUND MACHINE OPERATOR Oxygen Saturation 97% 10/28/2020 8:22 AM COMPOUND MACHINE OPERATOR Inhaled Oxygen Concentration - - Weight 131.1 kg (289 lb) 10/27/2020 3:39 PM COMPOUND MACHINE OPERATOR Height 186.1 cm (6' 1.25) 10/27/2020 3:39 PM CS T Body Mass Index 37.87 10/27/2020 3:39 PM COMPOUND MACHINE OPERATOR Plan of Treatment Health Maintenance Due Date Last Done Comments HIV for age 15-65 1989 Hepatitis C screening for ag e 18-79 02/23/1992 Hepatitis B series for 19+ ( 1 of 3 - 19+ 3-dose series) 1993 Depression screening for age 12+ 03/20/2017 03/20/20 16 Colonoscopy through age 75 2019 Lipids for age 45-75 2019 BMI (ht and wt on same day) for age 18+ 10/25/2021 10/25/2020, 08/23/2016, 03/22/2016, Additional history exists Pneumococcal series for age 50+ (1 of 1 - PCV) 02/23/2024 Zoster (shingles) series for age 50+ (1 of 2) 02/23/2024 COVID-19 vaccine series ( - 2023- season) 2025 Influenza Vaccine (#1) 2025 Tetanus booster 04/10/2029 04/10/2019, 07/01, 08/31/2005 RSV vaccine for adults or (1 - 1-dose 75+ series) 2049 Medical Devices Implanted Type Area Plant Chief Device Identifier Shelf Expiration Date Model / Serial / Lot Iol [place] +20 [employer] Zcb00 - [id number] Implanted:Qty: 1 on 10/28/2020 by Yovanny Garibay MD at [facility] Opthalmology Implants Right: Eye [employer] 07/25/2024 ZCB00 20.0 / [id number] / Insurance BLUE CROSS OF NON-DE-ITS Advance Directives * Full Code (Latest Code Status on File) Date Activated Date Inactivated Comments 10/28/2020 6:35 AM 10/28/2020 10:39 AM Question Answer Comments Code Status Discussion: Not Discussed Care Teams Expediter Service Order Relationship Specialty Start Date End Date Arielle Miller PCP - General Internal Medicine 12/19/19
[2025-06-07 21:50] VITALS: BP 142/90; PULSE 85; RESP 18; TEMP 36.6; O2SAT 95; BMI 41.1
--- NOTE | 2025-06-07 23:26 | ED.GENADULT ---
HPI - General Adult General Date Seen: 06/07/25 <Ashutosh Santillan MD - Last Filed: 06/07/25 23:27> Chief complaint: Laceration/Wound <Ashutosh Santillan MD - Last Filed: 06/07/25 23:27> Stated complaint: Right Chin Laceration <Ashutosh Santillan MD - Last Filed: 06/07/25 23:27> Time Seen by Provider: 06/07/25 23:15 <Ashutosh Santillan MD - Last Filed: 06/07/25 23:27> History of Present Illness HPI narrative: 50-year-old male presenting to the ER today with a chin laceration. He got lightheaded after coughing and smoking marijuana and then tripped and hit his chin on a patio table. <Ashutosh Santillan MD - Last Filed: 06/07/25 23:27> 50-year-old male presenting to the ER today with a chin laceration. He got lightheaded after coughing after smoking marijuana and then tripped and hit his chin on a patio table. He states when he fell he landed to his knees then hit his chin on the patio table. Denies any neck pain. Denies hitting his head. Is not on any blood thinners. States he came in because he could not get the bleeding to stop. Denies any upper extremity weakness or numbness. No other concerns noted. <Praveen Cox DO - Last Filed: 06/07/25 23:45> Related Data Home medications: Previous Rx's ?Medication ?Instructions ?Recorded topiramate 25 mg tablet (Topamax) 25 mg PO BID #180 tabs 07/28/24 quetiapine 25 mg tablet 25 mg PO QPM for insomnia #90 tabs 01/14/25 aripiprazole 5 mg tablet 2.5 mg (1/2 x 5 mg) PO QDAY #45 02/02/25 tabs losartan 100 1 tab PO DAILY #90 tabs 04/20/25 mg-hydrochlorothiazide 25 mg tablet lisdexamfetamine 40 mg capsule 40 mg PO QDAY #30 caps 05/25/25 (Vyvanse) <Ashutosh Santillan MD - Last Filed: 06/07/25 23:27> Allergies/adverse reactions: Allergies Allergy/AdvReac Type Severity Reaction Status Date / Time No Known Allergies Allergy Unknown Verified 05/18/25 16:05 <Ashutosh Santillan MD - Last Filed: 06/07/25 23:27> Review of Systems Narrative: Pertinent systems reviewed and were negative unless stated in HPI <Praveen Cox DO - Last Filed: 06/07/25 23:45> PFSH PFSH Medical History: Medical History Hx MRSA infection ?Z86.14 - Personal history of Methicillin resistant Staphylococcus aureus infection (ICD-10) Babesiosis (~12/2023) ?B60.00 - Babesiosis, unspecified (ICD-10) Hx of suicide attempt ?Z91.51 - Personal history of suicidal behavior (ICD-10) Infection due to severe acute respiratory syndrome coronavirus 2 (SARS-CoV-2) (2020) ?U07.1 - COVID-19 (ICD-10) Cellulitis ?L03.90 - Cellulitis, unspecified (ICD-10) Abscess of external ear ?H60.00 - Abscess of external ear, unspecified ear (ICD-10) History of solitary pulmonary nodule ?Z87.898 - Personal history of other specified conditions (ICD-10) History of panic attacks ?Z86.59 - Personal history of other mental and behavioral disorders (ICD-10) <Ashutosh Santillan MD - Last Filed: 06/07/25 23:27> Surgical History: Surgical History Status post right knee replacement (09/11/24) ?Z96.651 - Presence of right artificial knee joint (ICD-10) H/O eye surgery ?Z98.890 - Other specified postprocedural states (ICD-10) History of ankle surgery (10/12/04) ?Z98.890 - Other specified postprocedural states (ICD-10) History of repair of anterior cruciate ligament of right knee ?Z98.890 - Other specified postprocedural states (ICD-10) <Ashutosh Santillan MD - Last Filed: 06/07/25 23:27> Family History: Family History Mother Colon cancer High blood pressure Father Depression Thymus cancer Daughter Depression Brother High blood pressure Prostate cancer <Ashutosh Santillan MD - Last Filed: 06/07/25 23:27> Social History: Social History Narrative: . , [place]. ( 2 sons -21 yo, 17 yo), ( Daughter 23 yo.) Tobacco use; regular smoker (started since age 13yo) Alcohol: Beer; under 6 beers per day. usually 2-3 beers per day. Recreational drugs: some marijuana- smoke- one nightly. Smoking Status: Current every day smoker What tobacco products do you use: cigarettes Second hand tobacco smoke exposure: Yes How often do you have a drink containing alcohol: 4 or more times a week How many standard drinks containing alcohol do you have on a typical day: 3 or 4 AUDIT-C Alcohol total score: 5 Non-prescribed substance use: marijuana (any form) Caffeine: Yes <Ashutosh Santillan MD - Last Filed: 06/07/25 23:27> Exam Narrative: Exam Narrative: Const: Well-nourished, Well-developed, in no distress Eyes: PERRL, no conjunctival injection, and symmetrical lids HENT: Atraumatic external nose and ears. Moist mucous membranes. Neck: Symmetric, trachea midline, No thyromegaly. MSK:Extremities w/o deformity, Normal Active ROM, no midline cervical tenderness Skin: Warm, Dry. 1 cm laceration noted underneath the chin within his mcgraw Neuro: Normal Muscle tone, No focal neurological deficits. Psych: Awake, Alert, & Oriented x3. Appropriate mood and affect. <Praveen Cox DO - Last Filed: 06/07/25 23:45> Const: Vital Signs, click to edit/add: Vital Signs - 24 hr 06/07/25 21:50 Temperature 98 F Pulse Rate [Pulse Oximeter] 85 Respiratory Rate 18 Blood Pressure [Ri ght Upper Arm] 142/90 H Pulse Oximetry 95 Oxygen Delivery Me thod Room Air <Ashutosh Santillan MD - Last Filed: 06/07/25 23:27> Vital Signs, click to edit/add: Vital Signs - 24 hr 06/07/25 21:50 Temperature 98 F Pulse Rate [Pulse Oximeter] 85 Respiratory Rate 18 Blood Pressure [Ri ght Upper Arm] 142/90 H Pulse Oximetry 95 Oxygen Delivery Me thod Room Air <Praveen Cox DO - Last Filed: 06/07/25 23:45> Course Vital Signs Vital signs: Initial Vital Signs Temperature 98 F 06/07/25 21:50 Temperature Source Temporal Artery Scan 06/07/25 21:50 Pulse Rate 85 06/07/25 21:50 Respiratory Rate 18 06/07/25 21:50 Blood Pressure 142/90 H 06/07/25 21:50 Blood Pressure Mean 107 H 06/07/25 21:50 Blood Pressure Position Sitting 06/07/25 21:50 Pulse Oximetry 95 06/07/25 21:50 Oxygen Delivery Method Room Air 06/07/25 21:50 Vital Signs Temperature 98 F 06/07/25 21:50 Pulse Rate 85 06/07/25 21:50 Respiratory Rate 18 06/07/25 21:50 Blood Pressure 142/90 H 06/07/25 21:50 Pulse Oximetry 95 06/07/25 21:50 Oxygen Delivery Method Room Air 06/07/25 21:50 Temperature 98 F 06/07/25 21:50 Pulse Rate 85 06/07/25 21:50 Respiratory Rate 18 06/07/25 21:50 Blood Pressure 142/90 H 06/07/25 21:50 Pulse Oximetry 95 06/07/25 21:50 Oxygen Delivery Method Room Air 06/07/25 21:50 <Ashutosh Santillan MD - Last Filed: 06/07/25 23:27> Initial Vital Signs Temperature 98 F 06/07/25 21:50 Temperature Source Temporal Artery Scan 06/07/25 21:50 Pulse Rate 85 06/07/25 21:50 Respiratory Rate 18 06/07/25 21:50 Blood Pressure 142/90 H 06/07/25 21:50 Blood Pressure Mean 107 H 06/07/25 21:50 Blood Pressure Position Sitting 06/07/25 21:50 Pulse Oximetry 95 06/07/25 21:50 Oxygen Delivery Method Room Air 06/07/25 21:50 Vital Signs Temperature 98 F 06/07/25 21:50 Pulse Rate 85 06/07/25 21:50 Respiratory Rate 18 06/07/25 21:50 Blood Pressure 142/90 H 06/07/25 21:50 Pulse Oximetry 95 06/07/25 21:50 Oxygen Delivery Method Room Air 06/07/25 21:50 Temperature 98 F 06/07/25 21:50 Pulse Rate 85 06/07/25 21:50 Respiratory Rate 18 06/07/25 21:50 Blood Pressure 142/90 H 06/07/25 21:50 Pulse Oximetry 95 06/07/25 21:50 Oxygen Delivery Method Room Air 06/07/25 21:50 <Praveen Cox DO - Last Filed: 06/07/25 23:45> Medical Decision Making MDM Narrative Medical decision making narrative: Patient is a 50-year-old male presenting to the emergency department for laceration. This laceration to his chin. I did speak to about options of closure at this time he would prefer skin glue. This seems reasonable. He is not to concerned about scarring as he does have a mcgraw. Skin glue was applied and he will be discharged. His tetanus is up-to-date. Antibiotics are not necessary. <Praveen Cox DO - Last Filed: 06/07/25 23:45> Discharge Plan Discharge Clinical Impression: Laceration <Ashutosh Santillan MD - Last Filed: 06/07/25 23:27> Patient Disposition: Home, Self-Care <Ashutosh Santillan MD - Last Filed: 06/07/25 23:27> Condition: Stable <Ashutosh Santillan MD - Last Filed: 06/07/25 23:27> Instructions: Skin Adhesive Care (ED) <Ashutosh Santillan MD - Last Filed: 06/07/25 23:27> Additional Instructions: Skin glue will dissolve on its own over the next week. Patient can wash the area but do not scrub as this may pole off the skin glue prematurely. Pat dry the area. Do not use topical antibiotics as that will dissolve the glue faster. If worried about scar formation can place sunscreen over the area for the next 6 months whenever patient goes outside once glue is gone. <Ashutosh Santillan MD - Last Filed: 06/07/25 23:27> Prescriptions: No Action topiramate [Topamax] 25 mg tablet 25 mg PO BID Qty: 180 1RF Rx Instructions: One tablet twice daily for weight loss support quetiapine 25 mg tablet 25 mg PO QPM Qty: 90 2RF aripiprazole 5 mg tablet 2.5 mg PO QDAY Qty: 45 2RF Rx Instructions: 1/2 tablet once a day for mood losartan-hydrochlorothiazide 100-25 mg tablet 1 tab PO DAILY Qty: 90 1RF lisdexamfetamine [Vyvanse] 40 mg capsule 40 mg PO QDAY Qty: 30 0RF <Ashutosh Santillan MD - Last Filed: 06/07/25 23:27> Follow Up/Referrals: Jenn Garrison PA-C [Primary Care Provider, Family Practice] <Ashutosh Santillan MD - Last Filed: 06/07/25 23:27> Stand Alone Forms: [facility] Info Instructions <Ashutosh Santillan MD - Last Filed: 06/07/25 23:27> Procedures Laceration Chin: Name of person performing procedure: Praveen Cox <Praveen Cox DO - Last Filed: 06/07/25 23:45> Site: face (Chin) <Praveen Cox DO - Last Filed: 06/07/25 23:45> Size (cm): 1 <Praveen Cox DO - Last Filed: 06/07/25 23:45> Description: linear and irregular <Praveen Cox DO - Last Filed: 06/07/25 23:45> Depth: simple, single layer <Praveen Cox DO - Last Filed: 06/07/25 23:45> Pre-repair: wound explored, irrigated extensively and deep structures intact <Praveen Cox DO - Last Filed: 06/07/25 23:45> Skin layer closed with: other (Dermabond) <Praveen Cox DO - Last Filed: 06/07/25 23:45> Estimated blood loss (if any): none <Praveen Cox DO - Last Filed: 06/07/25 23:45> Conclusion: patient tolerated procedure <Praveen Cox DO - Last Filed: 06/07/25 23:45>
== END 2025-06-07 23:53 | disposition home or self-care (01) ==
LOC: ED 23:50
PROVIDERS: Emergency Provider Student in an Organized Health Care Education/Training Program; PCP Physician Assistant Medical
DX: S01.81XA Laceration without foreign body of other part of head, initial encounter (principal); W22.8XXA Striking against or struck by other objects, initial encounter
CPT/HCPCS: 12011; 99282; 99283

== ENCOUNTER 2025-09-25 11:17 | Outpatient (CLI) | payer BC, SELFPAY | END 2025-09-25 11:18 | disposition home or self-care (01) | PROVIDERS: PCP Physician Assistant Medical; Visit Provider Physician Assistant Medical | DX: Z00.00 Encounter for general adult medical examination without abnormal findings (principal); F32.A Depression, unspecified | CPT/HCPCS: 80053; 80061; 82306; 84443; G0103 ==